=== PATIENT | male | born 1995 | race American Indian/Alaskan Native ===

== ENCOUNTER 2019-02-21 08:15 | Emergency (ER) | payer SELFPAY ==
[2019-02-21 08:20] VITALS: BP 149/93
--- NOTE | 2019-02-21 09:10 | Emergency Department Report ---
Chief Complaint: Urogenital-Male Stated Complaint: DISCHARGE/BLOOD IN URINE Time Seen by Provider: 02/21/19 08:50 - HPI History of Present Illness: 23-year-old -[place] male presents to the emergency room for penile discharge with hematuria and painful urination 4-5 days. Patient states he's had unprotected intercourse. Patient denies any fever chills nausea no vomiting no abdominal pain. Patient states that he had a talk with this and her when she was going to be seen by her primary care provider. Patient denies any allergies to medicine has no past medical history. - Exam Vital Signs: Vital Signs 02/21/19 08:17 Temperature 98.0 F Pulse Rate 64 Respiratory 20 Rate Blood Pressure 149/93 O2 Sat by Pulse 99 Oximetry Physical Exam: Gen: alert oriented NAD Cardic: regular rate and rhythm no murmurs appreciated Resp: Clear to auscultation bilateral no wheezing no rales or rhonchi. Abdomen: Soft nontender nondistended normal bowel sounds. Mini neuro: Alert and oriented time 3 Crainal nerve II-IIX intact MSE screening note: Focused history and physical exam performed. Due to findings the following was ordered: 23-year-old -[place] male presents to the emergency room for penile discharge with hematuria and painful urination 4-5 days. Patient states he's had unprotected intercourse. Patient denies any fever chills nausea no vomiting no abdominal pain. Patient states that he had a talk with this and her when she was going to be seen by her primary care provider. Patient denies any allergies to medicine has no past medical history. Patient has been evaluated by this provider. Discussed the patient dyspnea has not constitute life-threatening emergency threatened of life or loss of limb.. Discussed the patient that he can be evaluated by health department where they're able to do a complete STD workup which would include syphilis herpes hepatitis HIV gonorrhea chlamydia. Patient states that he would rather be seen by them for a complete STD workup. ED Disposition for MSE Disposition: MED SCREENING EXAM-LEFT Is pt being admited?: No Does the pt Need Aspirin: No Condition: Stable Referrals: PRIMARY CARE, [Primary Care Provider] - 3-5 Days [facility] [Outside] - 3-5 Days [facility] [Outside] - 3-5 Days
== END 2019-02-21 13:26 | disposition left against medical advice (07) ==
LOC: ED 08:15
DX: R36.9 Urethral discharge, unspecified (principal)